=== PATIENT | male | born 1945 | race Caucasian/White ===

== ENCOUNTER → 2018-02-04 | Outpatient (CLI) | payer MEDICARE ==
[2018-02-04 10:02] LABS: ISTAT CREATININE 0.7 mg/dL (0.7-1.3)
[2018-02-04] MEDS: GADOBUTROL 10 MMOL/10 ML VIAL IV (10:17)
== END | disposition home or self-care (01) ==
LOC: KCIC US 07:54
DX: R41.3 Other amnesia (principal); R90.82 White matter disease, unspecified; R42 Dizziness and giddiness
CPT/HCPCS: 70553; 82565; 93880; A9585